=== PATIENT | female | born 1990 | race African-American/Black ===

== ENCOUNTER 2022-06-12 17:17 | Inpatient (IN) ==
[2022-06-12] MEDS ORDERED: LIDOCAINE 1% LOCAL 20 ML VIAL INFIL PRN (17:59)
[2022-06-12 18:30] LABS: Hematocrit (blood only) 29.6 % (37.0-47.0); Hemoglobin 9.6 g/dl (12.0-16.0); Mean Corpuscular Hemoglobin 27.7 pg (25.0-34.0); Mean Corpuscular Hgb Conc 32.4 g/dL (32.0-36.0); Mean Corpuscular Volume 85.3 fL (80.0-100.0); Mean Platelet Volume 9.8 fL (9.4-12.4); Platelet Count 165 K/uL (130-400); RDW Coefficient of Variation 14.2 % (11.5-14.5); RDW Standard Deviation 43.8 fL (36.4-46.3); Red Blood Count 3.47 M/uL (4.20-5.40); White Blood Count 8.78 K/ul (4.8-10.8)
[2022-06-12] MEDS ORDERED: SODIUM CHLORIDE 0.9% 250 ML IV PRN (18:35)
[2022-06-12] MEDS: LACTATED RINGER'S 1,000 ML IV PRN ×2 (20:50→21:47)
[2022-06-12] MEDS ORDERED: LIDOCAINE 2%/EPINEPHRINE 1:200,000 20 ML SDV ONE (21:03)
[2022-06-12] MEDS ORDERED: ePHEDrine sulfate 50 MG/ML AMP ONE (21:03)
[2022-06-12] MEDS ORDERED: fentaNYL citrate 100 MCG/2 ML VIAL ONE (21:03)
[2022-06-12] MEDS ORDERED: SODIUM CHLORIDE 0.9% INJ 10 ML VIAL ONE (21:03)
[2022-06-12] MEDS ORDERED: BUPIVACAINE 0.25% 30 ML VIAL ONE (21:03)
[2022-06-12] MEDS ORDERED: fentaNYL 2MCG/ML ROPIVACAINE 1.25MG/ML 100 ML BAG EPI ONE (21:04)
[2022-06-12] MEDS ORDERED: NALOXONE HCL 0.4 MG/1 ML VIAL/CARP IV PRN (21:09)
[2022-06-12] MEDS ORDERED: NALOXONE HCL 1 MG in SODIUM CHLORIDE 0.9% 1000ML 1,000 ML IV PRN (21:09)
[2022-06-12] MEDS ORDERED: NALBUPHINE HCL INJ 10 MG/ML AMP IV PRN (21:09)
[2022-06-12] MEDS ORDERED: ePHEDrine sulfate 50 MG/ML AMP IV PRN (21:09)
[2022-06-12] MEDS ORDERED: diphenhydrAMINE 50 MG/ML VIAL IV PRN (21:09)
[2022-06-12] MEDS ORDERED: ONDANSETRON INJ 2 MG/ML 2 ML VIAL IV PRN (21:09)
[2022-06-12] MEDS ORDERED: fentaNYL 2MCG/ML ROPIVACAINE 1.25MG/ML 100 ML BAG EPI PRN (21:09)
--- NOTE | 2022-06-12 21:12 | Anesthesiology Consultation ---
Date of Service June 12, 2022 Assessment & Plan (1) Encounter for pre-operative examination: Chart Review Chart Review: Patient NOT seen in Pre Admission Testing and Acceptable Risk for Labor Epidural Consults Requested none History Height/Weight Height: 5 ft 3 in Weight: 65.317 kg Allergies Allergy/AdvReac Type Severity Reaction Status Date / Time azithromycin Allergy GI upset Verified 06/07/22 09:24 Medications Home Medications Medication Instructions Recorded Confirmed Last Taken prenat.vits,bentley,trv-vhfq-[id number] 1 tab PO DAILY 11/03/21 06/12/22 06/11/22 09:00 Active Medications Generic Name Dose Route Start Last Admin Trade Name Freq PRN Reason Stop Dose Admin Lactated Ringer's 1,000 mls @ 125 mls/hr 06/12/22 17:59 06/12/22 20:50 Lr IV 06/14/22 17:58 999 mls/hr .Q8H PRN Administration L&D Protocol Protocol Past Medical History Medical History Hx of migraines LGSIL on Pap smear of cervix Thrombocytopenia during Varicella vaccination Exercise / Class Metabolic Activity II 4-5 Yardwork/Stairs/Walk up hill Past Family History Family History Grandmother (Maternal) Breast cancer Mother Hypertension Hypercholesteremia Father Hypertension Hypercholesteremia Denies family history of Ovarian cancer Colorectal cancer Past Surgical History Surgical History History of colposcopy S/P wisdom tooth extraction Past Anesthesia History No Hx of Anesthesia Complications and No Family Hx of Anesthesia Complications Social History Smoking Status: Never smoker Hx Alcohol Use: No Hx Substance Use: No Physical Exam Vital Signs Last Vital Signs Temp 36.7 C 06/12/22 19:04 Pulse 77 06/12/22 21:36 Resp 18 06/12/22 19:04 BP 126/68 06/12/22 19:04 Pulse Ox 100 06/12/22 21:36 O2 Del Method Room Air 06/12/22 19:05 Testing Laboratory Results 06/12/22 18:13 Blood Type A Positive 06/12/22 18:13 Antibody Screen NEGATIVE 06/12/22 18:13
[2022-06-12] MEDS: OXYTOCIN 30 UNITS/500 ML BAG IV PRN (23:50)
--- NOTE | 2022-06-13 00:04 | Delivery Summary ---
Vaginal Delivery Summary Date of Service June 13, 2022 Vaginal Delivery Summary Patient presented in spontaneous labor at 38 weeks and 5 days uncomplicated known clubfoot of the left foot once in full active labor requested epidural membranes most of ruptured at some point as she was suddenly fully dilated and then pushed over several contractions delivering a baby in occiput anterior position was a loose nuchal cord passed over the head mouth and then nares suctioned with bulb gentle traction on the baby no excessive force easy delivery live male vigorous infant cord clamped cord blood obtained placenta removed with gentle traction IV Pitocin started there was really minimal tearing however on the right labial side there was a small area that was still bleeding so a simple interrupted stitch of 4-0 Vicryl was placed in this stopped the bleeding estimated blood loss 200 mL sponge and instrument counts correct
[2022-06-13] MEDS: OXYTOCIN 30 UNITS/500 ML BAG IV PRN (00:23)
[2022-06-13] MEDS ORDERED: ACETAMINOPHEN 325 MG TAB PO PRN (00:30)
[2022-06-13] MEDS ORDERED: BENZOCAINE 20% AER SPR 82.5 GM CAN EXT PRN (00:30)
[2022-06-13] MEDS ORDERED: DIPHTHERIA/TETANUS/PERTUSSIS 0.5mL SYR/VIAL (Age 7+yrs) IM ONE (00:30)
[2022-06-13] MEDS ORDERED: OXYTOCIN 30 UNITS/500 ML BAG IV PRN (00:30)
[2022-06-13] MEDS ORDERED: HYDROCORTISONE ACETATE 25 MG SUPP PR PRN (00:30)
[2022-06-13] MEDS ORDERED: oxyCODONE/ACETAMINOPHEN 5mg/325mg TAB PO PRN (00:30)
[2022-06-13] MEDS: IBUPROFEN 600 MG TAB PO PRN ×4 (01:54→20:30)
--- NOTE | 2022-06-13 07:17 | Obstetrical Progress Note ---
Date of Service <Leatha Rob MD - Last Filed: 06/13/22 07:25> June 13, 2022 Assessment & Plan <Leatha Rob MD - Last Filed: 06/13/22 07:25> (1) examination following vaginal delivery: now PPD1 after precipitous . A pos, GBS neg, Rubella immune. Satisfactory post progress. Encourage ambulation. <Amy Abdalla MD, FACOG - Last Filed: 06/14/22 07:16> (1) examination following vaginal delivery: Subjective <Leatha Rob MD - Last Filed: 06/13/22 07:25> Ambulation: ambulating normally Voiding: no voiding problems Passing Gas:: Yes Diet Tolerance:: regular diet Lochia:: Small Feeding Type:: breast feeding Physical Exam <Leatha Rob MD - Last Filed: 06/13/22 07:25> Gen: well appearing female in NAD HEENT: AT NC Resp: No increased work of breathing CV: clinically well perfused, no calf tenderness : uterus firm 1 cm below the level of the umbilicus, non-tender Results & Data ([facility]) <Leatha Rob MD - Last Filed: 06/13/22 07:25> Vital Signs (Past 12 Hours) Vital Signs Temp Pulse Pulse Resp BP BP Pulse Ox 06/13/22 04:20 06/13/22 04:34 36.6 C 74 18 110/74 100 06/13/22 02:00 20 06/13/22 01:30 20 06/13/22 01:00 20 06/13/22 00:45 16 06/13/22 00:30 18 06/13/22 00:15 18 06/13/22 00:00 18 06/13/22 02:13 74 111/71 06/13/22 01:58 70 106/68 06/13/22 01:44 67 110/69 06/13/22 01:28 84 120/78 06/13/22 01:13 83 106/72 06/13/22 00:58 68 106/70 06/13/22 00:43 65 109/72 06/13/22 00:29 75 118/78 06/13/22 00:16 81 100 06/13/22 00:14 86 114/62 06/13/22 00:11 96 H 100 06/12/22 23:30 20 06/12/22 23:30 20 06/13/22 00:06 87 100 06/13/22 00:01 92 H 100 06/12/22 23:58 94 H 06/12/22 23:58 117/70 06/12/22 23:56 100 06/12/22 23:56 85 06/12/22 23:51 100 06/12/22 23:51 86 06/12/22 23:46 100 06/12/22 23:46 116 H 06/12/22 23:43 78 L 06/12/22 23:43 112 H 06/12/22 23:41 100 06/12/22 23:41 107 H 06/12/22 23:36 100 06/12/22 23:36 109 H 06/12/22 23:31 100 06/12/22 23:31 90 06/12/22 23:29 107 H 06/12/22 23:29 120/82 06/12/22 23:26 100 06/12/22 23:26 88 06/12/22 23:21 99 06/12/22 23:21 75 06/12/22 23:16 100 06/12/22 23:16 77 06/12/22 23:14 81 06/12/22 23:14 101/62 06/12/22 23:11 99 06/12/22 23:11 79 06/12/22 23:00 16 06/12/22 23:00 16 06/12/22 23:06 100 06/12/22 23:06 74 06/12/22 23:01 100 06/12/22 23:01 90 06/12/22 22:58 77 06/12/22 22:58 108/64 06/12/22 22:56 99 06/12/22 22:56 78 06/12/22 22:51 99 06/12/22 22:51 79 06/12/22 22:30 16 06/12/22 22:30 16 06/12/22 22:46 100 06/12/22 22:46 83 06/12/22 22:43 77 06/12/22 22:43 102/62 06/12/22 22:41 100 06/12/22 22:41 77 06/12/22 22:36 100 06/12/22 22:36 80 06/12/22 22:31 100 06/12/22 22:31 80 06/12/22 22:28 78 06/12/22 22:28 108/64 06/12/22 22:26 100 06/12/22 22:26 92 H 06/12/22 22:21 100 06/12/22 22:21 86 06/12/22 22:16 100 06/12/22 22:16 61 06/12/22 22:13 77 06/12/22 22:13 111/62 06/12/22 22:11 100 06/12/22 22:11 87 06/12/22 22:00 18 06/12/22 22:00 18 06/12/22 22:07 82 06/12/22 22:07 103/58 L 06/12/22 22:06 100 06/12/22 22:06 108 H 06/12/22 22:02 83 06/12/22 22:02 115/68 06/12/22 22:01 100 06/12/22 22:01 83 06/12/22 21:58 83 06/12/22 21:58 113/65 06/12/22 21:56 99 06/12/22 21:56 86 06/12/22 21:51 100 06/12/22 21:51 87 06/12/22 21:52 84 06/12/22 21:52 109/64 06/12/22 21:50 93 H 06/12/22 21:50 116/67 06/12/22 21:48 83 06/12/22 21:48 111/65 06/12/22 21:46 100 06/12/22 21:46 85 06/12/22 21:46 93 H 06/12/22 21:46 112/70 06/12/22 21:44 92 H 06/12/22 21:44 117/66 06/12/22 21:41 100 06/12/22 21:41 86 06/12/22 21:42 84 06/12/22 21:42 108/65 06/12/22 21:39 77 06/12/22 21:39 109/63 06/12/22 21:36 100 06/12/22 21:36 77 06/12/22 21:31 100 06/12/22 21:31 82 06/12/22 21:26 100 06/12/22 21:26 86 06/12/22 21:21 100 06/12/22 21:21 84 06/12/22 21:19 92 06/12/22 21:19 100 H 06/12/22 21:16 100 06/12/22 21:16 75 O2 Del Method 06/13/22 04:20 Room Air 06/13/22 04:34 Room Air 06/13/22 02:00 06/13/22 01:30 06/13/22 01:00 06/13/22 00:45 06/13/22 00:30 06/13/22 00:15 06/13/22 00:00 06/13/22 02:13 06/13/22 01:58 06/13/22 01:44 06/13/22 01:28 06/13/22 01:13 06/13/22 00:58 06/13/22 00:43 06/13/22 00:29 06/13/22 00:16 06/13/22 00:14 06/13/22 00:11 06/12/22 23:30 06/12/22 23:30 06/13/22 00:06 06/13/22 00:01 06/12/22 23:58 06/12/22 23:58 06/12/22 23:56 06/12/22 23:56 06/12/22 23:51 06/12/22 23:51 06/12/22 23:46 06/12/22 23:46 06/12/22 23:43 06/12/22 23:43 06/12/22 23:41 06/12/22 23:41 06/12/22 23:36 06/12/22 23:36 06/12/22 23:31 06/12/22 23:31 06/12/22 23:29 06/12/22 23:29 06/12/22 23:26 06/12/22 23:26 06/12/22 23:21 06/12/22 23:21 06/12/22 23:16 06/12/22 23:16 06/12/22 23:14 06/12/22 23:14 06/12/22 23:11 06/12/22 23:11 06/12/22 23:00 06/12/22 23:00 06/12/22 23:06 06/12/22 23:06 06/12/22 23:01 06/12/22 23:01 06/12/22 22:58 06/12/22 22:58 06/12/22 22:56 06/12/22 22:56 06/12/22 22:51 06/12/22 22:51 06/12/22 22:30 06/12/22 22:30 06/12/22 22:46 06/12/22 22:46 06/12/22 22:43 06/12/22 22:43 06/12/22 22:41 06/12/22 22:41 06/12/22 22:36 06/12/22 22:36 06/12/22 22:31 06/12/22 22:31 06/12/22 22:28 06/12/22 22:28 06/12/22 22:26 06/12/22 22:26 06/12/22 22:21 06/12/22 22:21 06/12/22 22:16 06/12/22 22:16 06/12/22 22:13 06/12/22 22:13 06/12/22 22:11 06/12/22 22:11 06/12/22 22:00 06/12/22 22:00 06/12/22 22:07 06/12/22 22:07 06/12/22 22:06 06/12/22 22:06 06/12/22 22:02 06/12/22 22:02 06/12/22 22:01 06/12/22 22:01 06/12/22 21:58 06/12/22 21:58 06/12/22 21:56 06/12/22 21:56 06/12/22 21:51 06/12/22 21:51 06/12/22 21:52 06/12/22 21:52 06/12/22 21:50 06/12/22 21:50 06/12/22 21:48 06/12/22 21:48 06/12/22 21:46 06/12/22 21:46 06/12/22 21:46 06/12/22 21:46 06/12/22 21:44 06/12/22 21:44 06/12/22 21:41 06/12/22 21:41 06/12/22 21:42 06/12/22 21:42 06/12/22 21:39 06/12/22 21:39 06/12/22 21:36 06/12/22 21:36 06/12/22 21:31 06/12/22 21:31 06/12/22 21:26 06/12/22 21:26 06/12/22 21:21 06/12/22 21:21 06/12/22 21:19 06/12/22 21:19 06/12/22 21:16 06/12/22 21:16 Laboratory Results 06/12/22 18:13 <Amy Abdalla MD, FACOG - Last Filed: 06/14/22 07:16> Co-Signing Physician Notes Resident Physician Supervision Note: I interviewed and examined the patient. Discussed with [Name of resident] and agree with findings and plan as documented in the note. Any exceptions or clarifications are listed here: [None] Documented By: Amy Abdalla MD, FACOG Resident Activity Tracking <Leatha Rob MD - Last Filed: 06/13/22 07:25> Resident Involvement: Resident Care Provided Care Provided: OB Delivery
--- NOTE | 2022-06-13 07:42 | Anesthesia Procedure Note ---
Date of Service June 13, 2022 Anesthesia Post Epidural Note Vital Signs Vital Signs: Temp Pulse Resp BP Pulse Ox O2 Del Method 36.6 C 74 18 110/74 100 Room Air 06/13/22 04:34 06/13/22 04:34 06/13/22 04:34 06/13/22 04:34 06/13/22 04:34 06/13/22 04:34 Pain Intensity Abdomen: Pain Intensity: 1 Notes Mental Status: alert / awake / arousable Nausea / Vomiting: adequately controlled Pain: adequately controlled Airway Patency, RR, SpO2: stable & adequate BP & HR: stable & adequate Hydration State: stable & adequate Neuraxial Anesthesia: was administered and sensory block is resolving Anesthetic Complications: no major complications apparent and Pt Satisfied with anesthetic care Epidural: Removed without complications and With tip intact
[2022-06-13] MEDS: PRENATAL VITAMIN 1 TAB PO SCH (08:09)
[2022-06-13] MEDS: DOCUSATE SODIUM 100 MG CAP PO SCH ×3 (08:10→20:30)
[2022-06-14] MEDS: IBUPROFEN 600 MG TAB PO PRN ×2 (03:53→09:07)
--- NOTE | 2022-06-14 06:09 | Obstetrical Progress Note ---
Date of Service <Leatha Rob MD - Last Filed: 06/14/22 07:23> June 14, 2022 Assessment & Plan <Leatha Rob MD - Last Filed: 06/14/22 07:23> (1) examination following vaginal delivery: now PPD2 after precipitous . A pos, GBS neg, Rubella immune. Satisfactory post progress. Encourage ambulation. <Roxy Bashir MD, FACOG - Last Filed: 06/14/22 07:30> (1) examination following vaginal delivery: Subjective <Leatha Rob MD - Last Filed: 06/14/22 07:23> Ambulation: ambulating normally Voiding: no voiding problems Passing Gas:: Yes Diet Tolerance:: regular diet Lochia:: Small Feeding Type:: breast feeding Physical Exam <Leatha Rob MD - Last Filed: 06/14/22 07:23> Gen: well appearing female in NAD HEENT: AT NC Resp: No increased work of breathing CV: clinically well perfused, no calf tenderness : uterine fundus firm and non-tender 1 cm below the level of the umbilicus Results & Data ([facility]) <Leatha Rob MD - Last Filed: 06/14/22 07:23> Vital Signs (Past 12 Hours) Vital Signs Temp Pulse Resp BP Pulse Ox O2 Del Method 06/13/22 23:45 36.7 C 85 18 96/61 L 98 Room Air 06/13/22 20:00 36.8 C 86 18 99/66 L 98 Room Air Laboratory Results 06/14/22 05:53 <Roxy Bashir MD, FACOG - Last Filed: 06/14/22 07:30> Co-Signing Physician Notes Resident Physician Supervision Note: I interviewed and examined the patient. Discussed with Dr. Rob and agree with findings and plan as documented in the note. Any exceptions or clarifications are listed here: Doing well. PLan d/c. Instructions given. Documented By: Roxy Bashir MD, FACOG Resident Activity Tracking <Leatha Rob MD - Last Filed: 06/14/22 07:23> Resident Involvement: Resident Care Provided Care Provided: OB Delivery
[2022-06-14 06:26] LABS: Hemoglobin 7.4 g/dl (12.0-16.0); Mean Corpuscular Hemoglobin 27.7 pg (25.0-34.0); Mean Corpuscular Hgb Conc 32.2 g/dL (32.0-36.0); Mean Corpuscular Volume 86.1 fL (80.0-100.0); Mean Platelet Volume 9.9 fL (9.4-12.4); Platelet Count 146 K/uL (130-400); RDW Coefficient of Variation 14.2 % (11.5-14.5); RDW Standard Deviation 44.4 fL (36.4-46.3); Red Blood Count 2.67 M/uL (4.20-5.40); White Blood Count 10.63 K/ul (4.8-10.8)
[2022-06-14] MEDS: DOCUSATE SODIUM 100 MG CAP PO SCH (09:08)
[2022-06-14] MEDS: PRENATAL VITAMIN 1 TAB PO SCH (09:08)
[2022-06-14] MEDS ORDERED: bisacodyL 5 MG TABEC PO SCH (20:00)
[2022-06-15] MEDS ORDERED: bisacodyL 10 MG SUPP PR PRN
== END 2022-06-14 16:59 | disposition home or self-care (01) | DRG 807 ==
LOC: OPB 17:17 → 4S1 17:18 → 4E2 06-13 02:45

== ENCOUNTER 2023-12-07 14:11 | Inpatient (IN) ==
[2023-12-07] MEDS ORDERED: LIDOCAINE 1% LOCAL 20 ML VIAL INFIL PRN (15:33)
[2023-12-07] MEDS ORDERED: OXYTOCIN 30 UNITS/NSS 30 UNITS/500 ML BAG IV PRN ×2 (15:33→19:33)
--- NOTE | 2023-12-07 15:38 | History & Physical Report ---
Date of Service December 07, 2023 Assessment & Plan (1) Normal labor and delivery: Plan admit, iv, labs. plans epidural and then can arom. pt agreeable. fhts categ 1. History of Present Illness Chief Complaint: labor Primary Care Provider: RISA Wadsworth 33yo at 39wks dara presents to LD with regular ctx. Was in office today and membranes stripped and now here with painful ctx. No rom. no vb. +FM PNC c/b 1. ama 2. anemia PNL rhpos, ri, gbs neg OBH: x 2 GYNH: nl paps Allergies Allergy/AdvReac Type Severity Reaction Status Date / Time azithromycin AdvReac GI upset Verified 12/07/23 11:02 Home Medications Medication Instructions Recorded Confirmed Type prenat.vits,bentley,cvj-yjhu-vlsen 1 tab PO DAILY 11/03/21 12/07/23 History ferrous sulfate 325 mg (65 mg 325 mg PO DAILY 10/26/23 12/07/23 History iron) tablet (FeroSul) iron sucrose 100 mg iron/5 mL 300 mg (15 mL) IV .COMPLEX 11/20/23 12/07/23 Rx intravenous solution (Venofer) Patient History Medical History (Updated 12/07/23 @ 15:37 by Dori Mckay MD, FACOG) Pyelectasis of fetus on ultrasound LGSIL on Pap smear of cervix Varicella vaccination Thrombocytopenia during Hx of migraines Surgical History History of colposcopy S/P wisdom tooth extraction Family History Grandmother (Maternal) Breast cancer Mother Hypertension Hypercholesteremia Father Hypertension Hypercholesteremia Uncle Myocardial infarction 50's Denies family history of Ovarian cancer Colorectal cancer Social History Smoking Status: Never smoker Second Hand Exposure: No; Do You Dip or Chew Tobacco: No; Hx Alcohol Use: No Hx Substance Use: No Preferred Language: Omani Communication Ability: Effective Claims Technician Required: No Beliefs That Will Affect Care: None marital status: marital status details: Andre Dao (38) [phone] Current Living Situation: Spouse Current Living Situation Comment: Patient lives with spouse, 2 children, and step daughter, current occupational status: employed current occupation: [employer] Feels Safe at Home: Yes Safety Concerns: Feels Safe At This Time Diet: regular Dental Care, Regularly: Yes Physical Activity Frequency: 1-2 Times per Week Assistive Devices: None Review of Systems as per Subjective / HPI Physical Exam Constitutional: WD/WN, vitals as above Respiratory: normal respiratory effort, lungs clear to auscultation Cardiovascular: Rate/Rhythm: regular rate and regular rhythm Gastrointestinal (Abdomen): soft gravid nt Musculoskeletal: no edema nontender calves Neurologic: grossly normal Psychiatric: A+Ox3, euthymic affect Genitourinary: OB Exam Abdomen: + fundal height Manual OB Exam: + cervical dilation 7 cm, + cervical effacement (75%) and + station -2 OB Exam Monitor Tracing: + external FHT monitor used, + external uterine monitor used (q2-4), + category I and + normal FHT variability Results & Data Vital Signs (Past 12 Hours) Vital Signs Temp Pulse Resp BP 12/07/23 14:40 98.1 F 85 18 114/71 12/07/23 14:27 85 114/71 Coding Level of Care Code None Diagnoses Normal labor and delivery O80
[2023-12-07] MEDS: LACTATED RINGER'S 1,000 ML IV PRN (15:40)
[2023-12-07 16:23] LABS: Hemoglobin 10.5 g/dl (12.0-16.0); Mean Corpuscular Hgb Conc 32.8 g/dL (32.0-36.0); Mean Corpuscular Volume 85.3 fL (80.0-100.0); Mean Platelet Volume 10.5 fL (9.4-12.4); Platelet Count 134 K/uL (130-400); RDW Coefficient of Variation 19.9 % (11.5-14.5); RDW Standard Deviation 61.6 fL (36.4-46.3); Red Blood Count 3.75 M/uL (4.20-5.40); White Blood Count 6.91 K/ul (4.8-10.8)
[2023-12-07] MEDS ORDERED: NALOXONE HCL 1 MG in SODIUM CHLORIDE 0.9% 1,000 ML IV PRN (16:27)
[2023-12-07] MEDS ORDERED: BUPIVACAINE 0.25% PF 30 ML VIAL EPI PRN (16:27)
[2023-12-07] MEDS ORDERED: ePHEDrine sulfate 50 MG/ML AMP IV PRN (16:27)
[2023-12-07] MEDS ORDERED: NALBUPHINE HCL 5 MG in SYRINGE 0 ML IV PRN (16:27)
[2023-12-07] MEDS ORDERED: fentaNYL citrate PF 100 MCG/2 ML VIAL EPI PRN (16:27)
[2023-12-07] MEDS ORDERED: ROPIVACAINE 0.5% PF 5 MG/ML 20 ML VIAL EPI PRN (16:27)
[2023-12-07] MEDS ORDERED: SODIUM CHLORIDE 0.9% PF INJ 10 ML VIAL EPI PRN (16:27)
[2023-12-07] MEDS ORDERED: LIDOCAINE 2% MPF LOCAL 5 ML VIAL EPI PRN (16:27)
[2023-12-07] MEDS ORDERED: SODIUM CHLORIDE 0.9% PF INJ 10 ML VIAL EPI STA (16:27)
[2023-12-07] MEDS ORDERED: fentaNYL citrate PF 100 MCG/2 ML VIAL EPI STA (16:27)
[2023-12-07] MEDS ORDERED: diphenhydrAMINE 50 MG/ML VIAL IV PRN (16:27)
[2023-12-07] MEDS ORDERED: NALOXONE HCL 0.4 MG/1 ML VIAL/CARP IV PRN (16:27)
--- NOTE | 2023-12-07 16:27 | Anesthesiology Consultation ---
Date of Service December 07, 2023 Assessment & Plan (1) Encounter for pre-operative examination: Chart Review Chart Review: Patient NOT seen in Pre Admission Testing and Acceptable Risk for Labor Epidural Consults Requested none History Height/Weight Height: 5 ft 3 in Weight: 64.41 kg Allergies Allergy/AdvReac Type Severity Reaction Status Date / Time azithromycin AdvReac GI upset Verified 12/07/23 11:02 Medications Home Medications Medication Instructions Recorded Confirmed Last Taken prenat.vits,bentley,psn-[id number]-dbuvn 1 tab PO DAILY 11/03/21 12/07/23 12/07/23 08:30 ferrous sulfate 325 mg (65 mg 325 mg PO DAILY 10/26/23 12/07/23 12/01/23 09:00 iron) tablet (FeroSul) iron sucrose 100 mg iron/5 mL 300 mg (15 mL) IV .COMPLEX 11/20/23 12/07/23 11/23/23 11:00 intravenous solution (Venofer) Active Medications Generic Name Dose Route Start Last Admin Trade Name Freq PRN Reason Stop Dose Admin Lactated Ringer's 1,000 mls @ 125 mls/hr 12/07/23 15:33 12/07/23 15:40 Lr IV 12/09/23 15:32 999 mls/hr .Q8H PRN Administration L&D Protocol Protocol Past Medical History Medical History Pyelectasis of fetus on ultrasound LGSIL on Pap smear of cervix Varicella vaccination Thrombocytopenia during Hx of migraines Past Family History Family History Grandmother (Maternal) Breast cancer Mother Hypertension Hypercholesteremia Father Hypertension Hypercholesteremia Uncle Myocardial infarction 50's Denies family history of Ovarian cancer Colorectal cancer Past Surgical History Surgical History History of colposcopy S/P wisdom tooth extraction Social History Smoking Status: Never smoker Do You Dip or Chew Tobacco: No Hx Alcohol Use: No Hx Substance Use: No substance use type: does not use Physical Exam Vital Signs Last Vital Signs Temp 98.1 F 12/07/23 14:40 Pulse 85 12/07/23 14:40 Resp 18 12/07/23 14:40 BP 114/71 12/07/23 14:40 Testing Laboratory Results 12/07/23 15:51
[2023-12-07] MEDS: fentANYL 2 MCG/ML BUPIVacaine 0.125%-NSS 100ML BAG EPI PRN (16:45)
[2023-12-07] MEDS: LIDOCAINE 2%/EPINEPHRINE 1:200,000 20 ML PF EPI STA (16:45)
[2023-12-07] MEDS: BUPIVACAINE 0.25% PF 30 ML VIAL EPI STA (16:45)
--- NOTE | 2023-12-07 17:58 | Labor Progress Brief Note ---
Date of Service December 07, 2023 Subjective comfortable with epidural Assessment & Plan (1) Normal labor and delivery: Plan ?arom, will monitor. need pitocin. fhts categ 1. pt agreeable. Admission and Anticipated Discharge Date Admission Date: December 07, 2023 Physical Exam Constitutional: WD/WN, vitals as above Genitourinary: Manual OB Exam: + cervical dilation (no change , with ctx 8cm) and + amniotic fluid (arom, ? return of fluid, will monitor) OB Exam Monitor Tracing: + external FHT monitor used, + external uterine monitor used (q6), + category I and + normal FHT variability Results & Data Vital Signs (Past 12 Hours) Vital Signs Temp Pulse Resp BP Pulse Ox 12/07/23 17:53 100 12/07/23 17:53 82 12/07/23 17:51 77 12/07/23 17:51 96/60 L 12/07/23 17:48 100 12/07/23 17:48 72 12/07/23 17:43 100 12/07/23 17:43 82 12/07/23 17:38 100 12/07/23 17:38 76 12/07/23 17:38 102/64 12/07/23 17:33 100 12/07/23 17:33 81 12/07/23 17:28 100 12/07/23 17:28 76 12/07/23 17:23 100 12/07/23 17:23 87 12/07/23 17:22 83 12/07/23 17:22 90/55 L 12/07/23 17:18 99 12/07/23 17:18 81 12/07/23 17:13 100 12/07/23 17:13 83 12/07/23 17:08 100 12/07/23 17:08 96 H 12/07/23 17:06 80 12/07/23 17:06 93/54 L 12/07/23 17:03 100 12/07/23 17:03 88 12/07/23 16:58 99 12/07/23 16:58 88 12/07/23 16:53 100 12/07/23 16:53 86 12/07/23 16:52 85 12/07/23 16:52 91/53 L 12/07/23 16:51 80 12/07/23 16:51 84/53 L 12/07/23 16:48 100 12/07/23 16:48 84 12/07/23 16:45 81 12/07/23 16:45 93/51 L 12/07/23 16:43 100 12/07/23 16:43 80 12/07/23 16:40 85 12/07/23 16:40 116/74 12/07/23 16:38 98 12/07/23 16:38 86 12/07/23 16:37 90 12/07/23 16:37 85 12/07/23 16:33 100 12/07/23 16:33 80 12/07/23 14:40 98.1 F 85 18 114/71 12/07/23 14:27 85 114/71 12/07/23 14:26 18 12/07/23 14:26 98.1 F 18 Coding Level of Care Code None Diagnoses Normal labor and delivery O80
[2023-12-07] MEDS: OXYTOCIN 30 UNITS/NSS 30 UNITS/500 ML BAG IV PRN (18:07)
--- NOTE | 2023-12-07 19:18 | Delivery Summary ---
Vaginal Delivery Summary Date of Service December 07, 2023 Vaginal Delivery Summary The patient dilated to complete and pushed to deliver a viable female Apgars 8 and 9 via over intact perineum. Loose nuchal x1 reduced. Mouth and nose bulb suctioned at perineum. Shoulders and body delivered with ease. Infant was vigorous and crying at . Cord clamped at 30 seconds of life and to maternal abdomen where the cord was then doubly clamped and cut. Placenta delivered spontaneously and intact, three-vessel cord. Hemostasis achieved with dilute pitocin and uterine massage. Cervix and sulci intact. QBL 55 cc. Mother and baby stable in recovery. [facility] Vaginal Delivery Charge Delivery Type Details:
[2023-12-07] MEDS ORDERED: BENZOCAINE 20% SPRY 85 APPLN/85 GM CAN EXT PRN (19:33)
[2023-12-07] MEDS ORDERED: oxyCODONE/ACETAMINOPHEN 5mg/325mg TAB PO PRN (19:33)
[2023-12-07] MEDS ORDERED: HYDROCORTISONE ACETATE 25 MG SUPP PR PRN (19:33)
[2023-12-07] MEDS ORDERED: OXYTOCIN 20 UNITS/LR 1,002 ML IV SCH (19:33)
--- NOTE | 2023-12-07 21:43 | Anesthesia Procedure Note ---
Date of Service December 07, 2023 Anesthesia Post Epidural Note Vital Signs Vital Signs: Temp Pulse Resp BP Pulse Ox 98.1 F 70 18 109/71 100 12/07/23 18:35 12/07/23 21:23 12/07/23 18:35 12/07/23 21:21 12/07/23 21:23 Pain Intensity Lower Abdomen: Pain Intensity: 0 Notes Mental Status: alert / awake / arousable and participated in evaluation Nausea / Vomiting: adequately controlled Pain: adequately controlled Airway Patency, RR, SpO2: stable & adequate BP & HR: stable & adequate Hydration State: stable & adequate Neuraxial Anesthesia: was administered and sensory block is resolving Anesthetic Complications: no major complications apparent and Pt Satisfied with anesthetic care Epidural: Removed without complications and With tip intact
[2023-12-07] MEDS: IBUPROFEN 600 MG TAB PO PRN (22:10)
[2023-12-07] MEDS: DOCUSATE SODIUM 100 MG CAP PO SCH (23:48)
[2023-12-08] MEDS: ACETAMINOPHEN 325 MG TAB PO PRN (01:28)
--- NOTE | 2023-12-08 06:34 | Obstetrical Progress Note ---
Date of Service December 08, 2023 Assessment & Plan (1) care and examination: Plan: PPD1: Stable, continue routine care, continue OOB and ambulation, diet as tolerated Discussed d/c tonight vs tomorrow Rh+, ri, breast Admission and Anticipated Discharge Date Admission Date: December 07, 2023 Supervising Physician Co-Signing Physician Notes Resident Physician Supervision Note: I was present with Dr. Mata during the history and exam. I discussed the case with the resident and agree with the findings and plan as documented in the note. Any exceptions or clarifications are listed here: stable doing well. eating, voiding, ambulating, breast feeding, rhpos. af vss. abd soft ff2 down nt, ext nt calves. ppd#1 s/p , desires dc home, instructions reviewed, f/u 6wk pp Documented By: Dori Mckay MD, FACOG Subjective Helio is a 33yo who is PPD#1 following induced vaginal delivery at term. She reports her pain is well-controlled w ibuprofen She is eating, drinking, ambulating, and urinating Having appropriate lochia Currently breast feeding. Review of Systems 2 Constitutional: no fever, no chills and no sweats Respiratory: no dyspnea Cardiovascular: no chest pain, no palpitations and no calf pain Genitourinary: no dysuria Neurologic: no headache(s) Physical Exam 2 Physical Exam: General: Alert, oriented. No acute distress. Cardiac: Regular rate and rhythm, no murmurs, rubs, or gallops. Respiratory: Clear to auscultation bilaterally, no wheezes/rales/rhonchi. No increased work of breathing. Symmetrical chest rise. No respiratory distress. Abdomen: Soft, nontender, nondistended. Bowel sounds present. Uterus: Uterine fundus firm, palpable 2 cm below the umbilicus. Lower extremities: No lower extremity edema or swelling. No deep calf pain. Results & Data Vital Signs (Past 12 Hours) Vital Signs Temp Pulse Pulse Resp BP BP Pulse Ox 12/08/23 03:12 36.6 C 63 16 99/65 L 98 12/07/23 23:05 36.7 C 65 18 103/70 98 12/07/23 21:35 36.5 C 62 18 115/76 100 12/07/23 21:23 100 12/07/23 21:23 70 08/22/24 21:21 65 12/07/23 21:21 109/71 12/07/23 21:18 100 12/07/23 21:18 62 12/07/23 21:13 100 12/07/23 21:13 64 12/07/23 21:08 100 12/07/23 21:08 66 12/07/23 21:06 65 12/07/23 21:06 108/71 12/07/23 21:03 100 12/07/23 21:03 63 12/07/23 20:58 100 12/07/23 20:58 69 12/07/23 20:53 100 12/07/23 20:53 62 12/07/23 20:51 75 12/07/23 20:51 112/73 12/07/23 20:48 100 12/07/23 20:48 71 12/07/23 20:46 90 12/07/23 20:46 65 12/07/23 20:43 100 12/07/23 20:43 61 12/07/23 20:38 100 12/07/23 20:38 60 12/07/23 20:36 57 L 12/07/23 20:36 111/73 12/07/23 20:33 100 12/07/23 20:33 63 12/07/23 20:28 99 12/07/23 20:28 62 12/07/23 20:23 100 12/07/23 20:23 62 12/07/23 20:22 93 12/07/23 20:22 64 12/07/23 20:21 62 12/07/23 20:21 109/70 12/07/23 20:18 100 12/07/23 20:18 68 12/07/23 20:16 91 12/07/23 20:16 68 12/07/23 20:13 100 12/07/23 20:13 63 12/07/23 20:10 93 12/07/23 20:10 66 12/07/23 20:08 98 12/07/23 20:08 63 12/07/23 20:06 75 12/07/23 20:06 112/69 12/07/23 20:03 99 12/07/23 20:03 70 12/07/23 20:01 92 12/07/23 20:01 68 12/07/23 19:58 99 12/07/23 19:58 65 12/07/23 19:53 99 12/07/23 19:53 83 12/07/23 19:51 63 12/07/23 19:51 114/65 12/07/23 19:48 100 12/07/23 19:48 65 12/07/23 19:43 100 12/07/23 19:43 66 12/07/23 19:38 94 12/07/23 19:38 78 12/07/23 19:37 72 12/07/23 19:37 108/77 12/07/23 19:36 91 12/07/23 19:36 80 12/07/23 19:33 100 12/07/23 19:33 73 12/07/23 19:28 99 12/07/23 19:28 78 12/07/23 19:23 99 12/07/23 19:23 84 12/07/23 19:21 82 12/07/23 19:21 108/55 L 12/07/23 19:18 98 12/07/23 19:18 88 12/07/23 19:13 99 12/07/23 19:13 79 12/07/23 19:09 90 12/07/23 19:09 91 H 12/07/23 19:08 100 12/07/23 19:08 103 H 12/07/23 19:07 88 12/07/23 19:07 110/58 L 12/07/23 19:03 100 12/07/23 19:03 91 H 12/07/23 18:58 100 12/07/23 18:58 84 12/07/23 18:53 99 12/07/23 18:53 84 12/07/23 18:53 84 12/07/23 18:53 111/71 12/07/23 18:48 100 12/07/23 18:48 73 12/07/23 18:43 100 12/07/23 18:43 82 12/07/23 18:38 100 12/07/23 18:38 84 12/07/23 18:38 105/67 12/07/23 18:35 18 12/07/23 18:35 36.7 C 18 12/07/23 18:33 100 12/07/23 18:33 85 Laboratory Results 12/07/23 15:51 Resident Activity Tracking Resident Involvement: Resident Care Provided Care Provided: Adult [facility] Medicine
[2023-12-08 07:42] VITALS: TEMP 98.1
[2023-12-08] MEDS: PRENATAL VITAMIN 1 TAB PO SCH (08:41)
[2023-12-08 10:54] VITALS: PULSE 73
[2023-12-08] MEDS: DIPHTHER/TETAN/PERTUS Vaccine (Tdap, Adol/Adult) 0.5mL IM ONE (14:27)
[2023-12-08 15:18] VITALS: BP 101/67; RESP 16; O2SAT 98
[2023-12-08] MEDS ORDERED: bisacodyL 5 MG TABEC PO SCH (20:00)
== END 2023-12-08 20:00 | disposition home or self-care (01) | DRG 807 ==
LOC: OPB 14:11 → 4S1 14:14 → 4E2 21:37